=== PATIENT | male | born 1970 | race Caucasian/White ===

== ENCOUNTER → 2024-09-19 | Outpatient (REF) | payer OTHER ==
[2024-09-19 15:42] LABS: BASO # 0.0 10^3/uL (0.0-0.2); BASO % 0.6 % (0.0-1.0); EOS # 0.2 10^3/uL (0.0-0.5); EOS % 3.2 % (0.0-3.0); LYMPH # 0.8 10^3/uL (1.5-5.0); LYMPH % 16.9 % (24.0-44.0); MONO # 0.3 10^3/uL (0.0-0.8); MONO % 5.0 % (2.0-8.0); NEUTROPHILS # 3.7 10^3/uL (1.5-8.5); NEUTROPHILS % 73.9 % (36.0-66.0); PLATELET COUNT, AUTOMATED 165 10^3/uL (150-450)
[2024-09-19 16:01] LABS: ALT/SGPT 31 U/L (7.0-40); AST/SGOT 31 U/L (<34); C REACTIVE PROTEIN QUANTITATIV 4.24 MG/DL (<1.0); CALCIUM LEVEL 9.5 MG/DL (8.5-10.1); CARBON DIOXIDE LEVEL 27 MMOL/L (20-31); CHLORIDE LEVEL 101 MMOL/L (98-107); COMPLEMENT C4 25.2 MG/DL (12-36); CREATININE FOR GFR 0.80 MG/DL (0.70-1.30); GLOMERULAR FILTRATION RATE > 90.0 (>56); POTASSIUM SERUM 4.1 MMOL/L (3.5-5.1); SODIUM LEVEL 139 MMOL/L (136-145)
[2024-09-19 16:38] LABS: ERYTHROCYTE SEDIMENTATION RATE 64 mm/hr (0-20)
[2024-09-20 16:29] LABS: CRYOGLOBULINS NEGATIVE (NEGATIVE)
[2024-09-20 17:19] LABS: HEPATITIS C VIRUS ABY INDEX < 0.02 INDEX (<0.8)
[2024-09-22 02:42] LABS: T P ELECTROPHORESIS SO 7.7 g/dL (6.1-8.1)
[2024-09-23 00:28] LABS: HEPATITIS B CORE ANTIBODY IGG NON-REACTIVE (NON-REACTIVE)
[2024-09-24 07:47] LABS: ALBUMIN SPEP 4.6 g/dL (3.8-4.8); ALPHA-1-GLOBULINS SO 0.3 g/dL (0.2-0.3); ALPHA-2-GLOBULINS SO 0.8 g/dL (0.5-0.9); BETA 2 GLOBULIN 0.5 g/dL (0.2-0.5); BETA-GLOBULIN SO 0.5 g/dL (0.4-0.6); GAMMA GLOBULINS SO 1.0 g/dL (0.8-1.7)
[2024-09-24 16:03] LABS: COMPLEMENT TOTAL (CH50) 58 U/mL (31-60)
== END ==
LOC: M SFHCRHEU 13:38
PROVIDERS: ATTEND Internal Medicine Rheumatology
DX: M05.79 Rheumatoid arthritis with rheumatoid factor of multiple sites without organ or systems involvement (principal); R76.8 Other specified abnormal immunological findings in serum; Z79.899 Other long term (current) drug therapy

== ENCOUNTER → 2024-09-23 | Outpatient (CLI) | payer OTHER | LOC: M RAD 13:00 | PROVIDERS: ATTEND Internal Medicine Rheumatology | DX: M46.1 Sacroiliitis, not elsewhere classified (principal); M05.79 Rheumatoid arthritis with rheumatoid factor of multiple sites without organ or systems involvement; R76.8 Other specified abnormal immunological findings in serum; Z79.899 Other long term (current) drug therapy ==

== ENCOUNTER 2024-10-09 11:30 | Emergency (ER) | payer OTHER ==
[~2024-10-09] VITALS: Ht 190.5 cm; Wt 105.7 kg
[2024-10-09] MEDS ORDERED: METH2.5T48 (14:28)
[2024-10-09] MEDS ORDERED: ROSU40TA81 (14:28)
[2024-10-09] MEDS ORDERED: NIFE1TAB52 (14:28)
[2024-10-09] MEDS ORDERED: FOLI1TAB11 (14:28)
[2024-10-09] MEDS ORDERED: METF10004 (14:28)
[2024-10-09] MEDS ORDERED: SEMA0.257 (14:28)
[2024-10-09] MEDS ORDERED: LOSA100T46 (14:28)
[2024-10-09] MEDS ORDERED: PRED5TA (14:28)
[2024-10-09 15:00] LABS: BASO # 0.0 10^3/uL (0.0-0.2); BASO % 0.5 % (0.0-1.0); EOS # 0.1 10^3/uL (0.0-0.5); EOS % 0.6 % (0.0-3.0); LYMPH # 1.0 10^3/uL (1.5-5.0); LYMPH % 12.4 % (24.0-44.0); MONO # 0.6 10^3/uL (0.0-0.8); MONO % 7.6 % (2.0-8.0); NEUTROPHILS # 6.4 10^3/uL (1.5-8.5); NEUTROPHILS % 78.4 % (36.0-66.0); PLATELET COUNT, AUTOMATED 167 10^3/uL (150-450)
[2024-10-09 15:13] LABS: ERYTHROCYTE SEDIMENTATION RATE 63 mm/hr (0-20)
[2024-10-09 16:36] LABS: C REACTIVE PROTEIN QUANTITATIV 4.87 MG/DL (<1.0)
[2024-10-09 16:41] LABS: CALCIUM LEVEL 8.8 MG/DL (8.5-10.1); CARBON DIOXIDE LEVEL 25 MMOL/L (20-31); CHLORIDE LEVEL 100 MMOL/L (98-107); CREATININE FOR GFR 0.79 MG/DL (0.70-1.30); GLOMERULAR FILTRATION RATE > 90.0 (>56); POTASSIUM SERUM 4.2 MMOL/L (3.5-5.1); SODIUM LEVEL 138 MMOL/L (136-145)
[2024-10-09] MEDS: TETANUS/DIPHTH/ACEL. PERTUSSIS 0.5 ML SYR IM.IMMUN ONE (17:03)
[2024-10-09] MEDS: DALBAVANCIN 1,500 MG in D5W 250 ML IV ONE (18:17)
[2024-10-09 19:08] VITALS: BP 122/70; TEMP 96.3; O2SAT 99
== END 2024-10-09 19:15 | disposition home or self-care (01) ==
LOC: M ED 11:30
DX: E11.621 Type 2 diabetes mellitus with foot ulcer (principal); M86.172 Other acute osteomyelitis, left ankle and foot; I10 Essential (primary) hypertension; M19.90 Unspecified osteoarthritis, unspecified site; G43.909 Migraine, unspecified, not intractable, without status migrainosus; E11.40 Type 2 diabetes mellitus with diabetic neuropathy, unspecified
CPT/HCPCS: 73630; 80048; 83605; 85025; 85652; 86140; 87040; 90471; 90715; 93971; 96365; 99284; J0875

== ENCOUNTER 2024-11-06 11:39 | Day surgery (SDC) | payer OTHER ==
[~2024-11-06] VITALS: Ht 190.5 cm; Wt 106.7 kg
[~2024-11-06 11:39] MED LIST: CEPH500C PO; COQ150CH PO; ETAN50PE; FEXO-112 PO; FOLI1TAB11 PO; GABA-1172 PO; LOSA100T46 PO; METF10004 PO; METH2.5T48 PO; MULTTAB61 PO; NIFE1TAB52 PO; PANT40TA29 PO; PRED5TA PO; ROSU40TA81 PO; SEMA0.257; VITA100093 PO; VITA250T27 PO
[2024-11-06] MEDS ORDERED: LR 1,000 ML IV SCH (12:00)
[2024-11-06] MEDS ORDERED: MIDAZOLAM INJ 2 MG/2 ML VIAL As Ordered ONE (13:41)
[2024-11-06] MEDS ORDERED: LIDOCAINE 2% 100 MG/5 ML SDV (FOR ANES.) As Ordered ONE (13:45)
[2024-11-06] MEDS: ceFAZolin SOD 2 GM IV ONCE IV ONE (13:45)
[2024-11-06] MEDS: LIDOCAINE 1% MDV 20 ML VIAL As Ordered ONE (13:47)
[2024-11-06 14:44] VITALS: BP 142/82; TEMP 98; O2SAT 99
== END 2024-11-06 14:55 | disposition home or self-care (01) ==
LOC: M SDC 11:39
PROVIDERS: ATTEND Podiatrist Foot & Ankle Surgery
DX: E11.621 Type 2 diabetes mellitus with foot ulcer (principal); I10 Essential (primary) hypertension; M06.9 Rheumatoid arthritis, unspecified; E78.00 Pure hypercholesterolemia, unspecified; K21.9 Gastro-esophageal reflux disease without esophagitis; Z79.899 Other long term (current) drug therapy; F17.220 Nicotine dependence, chewing tobacco, uncomplicated; G43.909 Migraine, unspecified, not intractable, without status migrainosus; Z79.84 Long term (current) use of oral hypoglycemic drugs; Z79.52 Long term (current) use of systemic steroids; Z79.85 Long-term (current) use of injectable non-insulin antidiabetic drugs
CPT/HCPCS: 28110; 88300; 93005; J0665; J0690; J2250